=== PATIENT | female | born 1970 | race Hispanic/Latino ===

== ENCOUNTER 2017-03-28 11:16 | Emergency (ER) | payer OTHER ==
--- NOTE | 2017-03-28 12:16 | ED PDOC ---
HPI: CCC, URI, Sore Throat Time Seen by Provider: 03/28/17 11:37 Chief Complaint (Nursing): Cough, Cold, Congestion Chief Complaint (Provider): Sore throat, congestion History Per: Patient History/Exam Limitations: no limitations Have you had recent travel within the past 21 days to any of the following countries: [place], [place], [place] or [place]?: No Onset/Duration Of Symptoms: Days (2) Location Of Pain: Throat Associated Symptoms: Fever (tactile), Sore Throat, Nasal Congestion Additional History Per: Patient Additional Complaint(s): 46yo female, no past medical history, presents to the ED for evaluation of sore throat, congestion, cough and tactile fever for the past 2 days. Patient also states at times she feels some shortness of breath and diffuse bodyaches. She denies any chest pain, headache. Patient states she took OTC pain medication and has had no relief. No other medical complaints. Past Medical History Reviewed: Historical Data, Nursing Documentation, Vital Signs Vital Signs: Last Vital Signs Temp 97.7 F 03/28/17 13:37 Pulse 80 03/28/17 13:37 Resp 17 03/28/17 13:37 BP 120/76 03/28/17 13:37 Pulse Ox 98 03/28/17 13:37 - Medical History PMH: Asthma - Surgical History Surgical History: No Surg Hx - Family History Family History: States: No Known Family Hx - Social History Current smoker - smoking cessation education provided: No Alcohol: None Drugs: Denies - Home Medications Home Medications: Ambulatory Orders Medication Instructions Recorded Albuterol HFA [Ventolin HFA 90 2 puff IH [id number] #1 inh 03/28/17 mcg/actuation (8 g)] Benzonatate [Tessalon Perles] 100 mg PO TID PRN #10 sgl 03/28/17 levoFLOXacin [Levaquin] 500 mg PO DAILY #7 tab 03/28/17 - Allergies Allergies/Adverse Reactions: Allergies Allergy/AdvReac Type Severity Reaction Status Date / Time Penicillins Allergy ANAPHYLAXIS Verified 03/28/17 11:38 Review of Systems ROS Statement: Except As Marked, All Systems Reviewed And Found Negative Constitutional: Positive for: Fever (tactile) ENT: Positive for: Nose Congestion Cardiovascular: Negative for: Chest Pain Respiratory: Positive for: Cough, Shortness of Breath Neurological: Negative for: Headache Physical Exam - Reviewed Nursing Documentation Reviewed: Yes Vital Signs Reviewed: Yes - Physical Exam Appears: Positive for: Non-toxic, No Acute Distress Head Exam: Positive for: ATRAUMATIC, NORMAL INSPECTION, NORMOCEPHALIC Skin: Positive for: Normal Color Eye Exam: Positive for: EOMI, PERRL ENT: Positive for: Normal ENT Inspection. Negative for: Pharyngeal Erythema, Tonsillar Exudate, Tonsillar Swelling Neck: Positive for: Normal, Supple Cardiovascular/Chest: Positive for: Regular Rate, Rhythm Respiratory: Positive for: Normal Breath Sounds. Negative for: Respiratory Distress Gastrointestinal/Abdominal: Positive for: Normal Exam, Soft. Negative for: Tenderness Back: Positive for: Normal Inspection Extremity: Positive for: Normal ROM. Negative for: Tenderness, Deformity, Swelling Neurologic/Psych: Positive for: Alert, Oriented. Negative for: Motor/Sensory Deficits - ECG O2 Sat by Pulse Oximetry: 99 (RA) Pulse Ox Interpretation: Normal Medical Decision Making Medical Decision Making: Time: 1211 Impression: URI, Bronchitis Differential: Influenza Plan: -- Rapid flu -- Chest x-ray Reassess Scribe Attestation: Documented by Mary Medina acting as a scribe for Jose Kim MD. Provider Attestation: All medical record entries made by the Scribe were at my direction and personally dictated by me. I have reviewed the chart and agree that the record accurately reflects my personal performance of the history, physical exam, medical decision making, and the department course for this patient. I have also personally directed, reviewed, and agree with the discharge instructions and disposition. Disposition - Clinical Impression Clinical Impression: Flu-like symptoms, URI (upper respiratory infection), Foot pain, right - Patient ED Disposition Is Patient to be Admitted: No Doctor Will See Patient In The: Office Counseled Patient/Family Regarding: Studies Performed, Diagnosis, Need For Followup - Disposition Referrals: [facility] [Outside] [facility] [Outside] Disposition: Routine/Home Disposition Time: 13:00 Condition: GOOD Additional Instructions: Take your medications as instructed. Follow up with your PCP in 2-3 days. Prescriptions: Albuterol HFA [Ventolin HFA 90 mcg/actuation (8 g)] 2 puff IH [id number] #1 inh Benzonatate [Tessalon Perles] 100 mg PO TID PRN #10 sgl PRN Reason: Cough levoFLOXacin [Levaquin] 500 mg PO DAILY #7 tab Instructions: Upper Respiratory Infection (ED)
[2017-03-28] MEDS ORDERED: Promethazine/Cod 6.25mg-10mg/5ml Syr UD PO STA (12:41)
[2017-03-28] MEDS ORDERED: Promethazine/Cod 6.25mg-10mg/5ml Syr UD ONE (12:58)
[2017-03-28 13:39] VITALS: BP 120/76; PULSE 80; RESP 17; TEMP 97.7
--- NOTE | 2017-03-28 13:57 | RAD ---
HISTORY: cough COMPARISON: Chest radiograph dated 12/05/2011 TECHNIQUE: Chest PA and lateral FINDINGS: LUNGS: No active pulmonary disease. PLEURA: No significant pleural effusion identified. No pneumothorax apparent. CARDIOVASCULAR: Normal. OSSEOUS STRUCTURES: No significant abnormalities. VISUALIZED UPPER ABDOMEN: Normal. OTHER FINDINGS: None. IMPRESSION: No active disease.
[2017-04-09 14:32] VITALS: O2SAT 99
== END 2017-03-28 13:51 | disposition home or self-care (01) ==
LOC: H.ER 11:16
DX: J06.9 Acute upper respiratory infection, unspecified (principal); J45.909 Unspecified asthma, uncomplicated; M79.671 Pain in right foot; Z88.0 Allergy status to penicillin